=== PATIENT | female | born 1965 | race Caucasian/White ===

== ENCOUNTER 2019-10-19 08:18 | Emergency (ER) | payer OTHER ==
[2019-10-19 08:31] VITALS: BP 159/66; PULSE 80; TEMP 98.2; BMI 27.3
[2019-10-19] MEDS ORDERED: KETOROLAC TROMETHAMINE 30 MG/1 ML VIAL IM ONE (08:54)
--- NOTE | 2019-10-19 08:54 | PDOC ---
History of Present Illness - General Chief Complaint: Pain, Acute Stated Complaint: SHOULDER PAIN Time Seen by Provider: 10/19/19 08:42 - History of Present Illness Initial Comments: 10/19/19 08:44 CHIEF COMPLAINT: shoulder pain HISTORY OF PRESENT ILLNESS: 54 yo F with no PMH presents to ED with pain to R shoulder x 3 days. Patient reports waking up on Friday and feeling some pain to her right shoulder that worsened throughout the day. She reports that it is a little better today but she still has limited ROM to her shoulder secondary to pain. 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 No recent travel or sick contacts. 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 SURGICAL HISTORY: Denies ALLERGIES: No known drug allergies REVIEW OF SYSTEMS General/Constitutional: Denies fever or chills. Denies weakness, weight change. HEENT: Denies change in vision. Denies ear pain or discharge. Denies sore throat. Cardiovascular: Denies chest pain or shortness of breath. Respiratory: Denies cough, wheezing, or hemoptysis. Gastrointestinal: Denies nausea, vomiting, diarrhea or constipation. Denies rectal bleeding. Genitourinary: Denies dysuria, frequency, or change in urination. Musculoskeletal: R shoulder pain. Denies joint or muscle swelling or pain. Denies neck or back pain. Skin and breasts: Denies rash or easy bruising. Neurologic: Denies headache, vertigo, loss of consciousness, or loss of sensation. Psychiatric: Denies depression or anxiety. PHYSICAL EXAM General Appearance: Well-appearing, appropriately dressed. No apparent distress , no intoxication. HEENT: EOMI, PERRLA, normal ENT inspection, normal voice, TMs normal, pharynx normal. No conjunctival pallor. No photophobia, scleral icterus. Neck: Supple. Trachea midline. No tenderness, rigidity, carotid bruit, stridor , lymphadenopathy, or thyromegaly. Respiratory/Chest: Lungs CTAB. No shortness of breath, chest tenderness, respiratory distress, accessory muscle use. No crackles, rales, rhonchi, stridor , wheezing, dullness Cardiovascular: RRR. S1, S2. No JVD, murmur, bradycardia, tachycardia. Vascular Pulses: Dorsalis-Pedis (R): 2+, Dorsalis-Pedis (L): 2+ Gastrointestinal/Abdominal: Normal bowel sounds. Abdomen soft, non-distended. No tenderness or rebound tenderness. No organomegaly, pulsatile mass, guarding , hernia, hepatomegaly, splenomegaly. Lymphatic: No adenopathy, tenderness. Musculoskeletal/Extremities: Tenderness to R anterior shoulder at AC joint. Limited active ROM to R shoulder secondary to pain, full passive ROM. Normal inspection. FROM of all extremities, normal capillary refill. Pelvis Stable. No CVA tenderness. No tenderness to extremities, pedal edema, swelling, erythema or deformity. Integumentary: Appropriate color, dry, warm. 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 Fully oriented, alert. Appropriate mood/affect. Motor strength 5/5. No appreciable EOM palsy, facial droop or sensory deficit. Past History - Past Medical History Allergies/Adverse Reactions: Allergies Allergy/AdvReac Type Severity Reaction Status Date / Time No Known Allergies Allergy Verified 10/19/19 08:31 Home Medications: Ambulatory Orders Cyclobenzaprine HCl 5 mg PO HS #10 tablet 10/19/19 Naproxen Sodium 550 mg PO BID #30 tablet 10/19/19 - Psycho Social/Smoking Cessation Hx Smoking History: Never smoked Have you smoked in the past 12 months: No Information on smoking cessation initiated: No Hx Alcohol Use: No Drug/Substance Use Hx: No *Physical Exam - Vital Signs Last Vital Signs Temp Pulse Resp BP Pulse Ox 98.2 F 80 16 159/66 95 10/19/19 08:28 10/19/19 08:28 10/19/19 08:28 10/19/19 08:28 10/19/19 08:28 Medical Decision Making - Medical Decision Making 10/19/19 08:54 54 yo F with no PMH presents to ED with pain to R shoulder x 3 days. -x-ray -toradol -ortho f/u x-ray suggestive of bursitis. Advised patient to take medication as prescribed and follow up with ortho within the next week. Advised patient of signs and symptoms for return to ED. Patient verbalized understanding and agrees to plan. Discharge - Discharge Information Problems reviewed: Yes Clinical Impression/Diagnosis: Bursitis of right shoulder Condition: Stable Disposition: HOME - Admission No - Additional Discharge Information Prescriptions: Cyclobenzaprine HCl 5 mg PO HS #10 tablet Naproxen Sodium 550 mg PO BID #30 tablet - Follow up/Referral Referrals: Michael Katz MD [Staff Physician] - Garrick Torres MD [Staff Physician] - - Patient Discharge Instructions Patient Printed Discharge Instructions: DI for Bursitis Additional Instructions: Please take medication as prescribed. As discussed, please follow up with an orthopedics for further evaluation and a possible MRI or physical therapy. If you experience any loss of sensation to your extremities, any swelling or increased pain to your arm or shoulder, please return to the ER. - Post Discharge Activity
[2019-10-19] MEDS ORDERED: KETOROLAC TROMETHAMINE 30 MG/1 ML VIAL ONE (09:26)
== END 2019-10-19 09:43 | disposition home or self-care (01) ==
LOC: JERFT 08:18
PROC: 3E0233Z Introduction of Anti-inflammatory into Muscle, Percutaneous Approach (ICD-10-PCS; principal; 2019-10-19)
DX: M75.51 Bursitis of right shoulder (principal)
CPT/HCPCS: 73030-TC-RT-FY; 99281-25

== ENCOUNTER 2024-01-13 10:36 | Emergency (ER) | payer OTHER ==
[2024-01-13 10:43] VITALS: BP 165/81; PULSE 76; RESP 16; TEMP 97.6; BMI 22.2
== END 2024-01-13 12:55 | disposition home or self-care (01) ==
LOC: JER 10:36
DX: N64.4 Mastodynia (principal); M54.9 Dorsalgia, unspecified; R21 Rash and other nonspecific skin eruption; B02.9 Zoster without complications
CPT/HCPCS: 93005; 93010; 99283-25